=== PATIENT | male | born 1955 | race Asian ===

== ENCOUNTER 2016-12-03 00:09 | Inpatient (IN) | payer MEDICAID ==
[~2016-12-03] VITALS: Ht 177.8 cm; Wt 114.5 kg
[2016-12-03] VITALS (11 sets, daily range): BP systolic 108–142; BP diastolic 56–71; Ht 177.8 cm; Wt 114.5 kg
[~2016-12-03 00:09] MED LIST: GLUCOPHAGE1000 MG PO; LANTUS INSULIN10 ML SC; NAPROSYN500 MG PO; SPIRIVA18 MCG INH; SYNTHROID75 MCG PO; TRIGLIDE160 MG PO; ZANTAC150 MG PO; ZOCOR40 MG PO
[2016-12-03 00:42] LABS: HEMATOCRIT 36.6 % (42.0-54.0); LYMPHOCYTES 59.7 % (15-50); MCH 31.8 pg (26.0-34.0); MCHC 35.5 g/dL (31.0-37.0); MCV 89.5 fL (80.0-100.0); MEAN PLATELET VOLUME 8.2 fL (7.4-10.4); NEUTROPHILS 33.9 % (40-80); RBC 4.09 10x6/uL (4.20-6.10); RDW 12.8 % (11.5-14.5); WBC 7.4 10x3/uL (4.8-10.8)
[2016-12-03 00:44] LABS: PLATELET COUNT 493 10x3/uL (130-400)
[2016-12-03 01:01] LABS: ALBUMIN 3.6 g/dL (3.4-5.0); ALKALINE PHOSPHATASE 46 U/L (46-116); ALT (SGPT) 20 U/L (10-68); AMYLASE - SERUM 36 U/L (25-115); CALC OSMOLALITY 275 mosm/kg (275-300); CALCIUM 9.4 mg/dL (8.5-10.1); CARBON DIOXIDE 23.1 mmol/L (21.0-32.0); CHLORIDE - SERUM 102 mmol/L (98-107); GLUCOSE 160 mg/dL (74-106); LIPASE 375 U/L (73-393); POTASSIUM - SERUM 3.5 mmol/L (3.5-5.1); PROTEIN - SERUM 7.6 g/dL (6.4-8.2); SODIUM 135 mmol/L (136-145); UREA NITROGEN 20 mg/dL (7-18); eGFR NON AFRICAN AMERICAN 81 mL/min (90-120)
[2016-12-03 03:43] LABS: APPEARANCE CLEAR (CLEAR); BILIRUBIN NEGATIVE (NEGATIVE); COLOR YELLOW (YELLOW); GLUCOSE NEGATIVE (NEGATIVE); KETONE NEGATIVE (NEGATIVE); LEUKOCYTE ESTERASE NEGATIVE (NEGATIVE); NITRITE NEGATIVE (NEGATIVE); PROTEIN NEGATIVE (NEGATIVE); SPECIFIC GRAVITY 1.025 (1.005-1.020); UROBILINOGEN NORMAL (NORMAL)
--- NOTE | 2016-12-03 07:30 | NUR ---
RECEIVED PT VIA STRETCHER FROM ED, PT TO ROOM 1223, PT TRANSFERS SELF TO BED WITH NO DIFFICULTY, PT TO BR TO VOID, PT TO BED, ADMITTING ASSESSMENT AND HISTORY STARTED, SEE FLOW SHEET
--- NOTE | 2016-12-03 08:00 | NUR ---
ADMITTING HISTORY AND ASSESSMENT COMPLETED, CONSENTS SIGNED AND WITNESSED
--- NOTE | 2016-12-03 08:10 | NUR ---
PT TO SX VIA BED
--- NOTE | 2016-12-03 09:54 | HP ---
PATIENT: RADHA KEVIN MEDICAL RECORD: [id number] ACCOUNT: [id number] LOCATION:NAVEED [id number] : 57 ADMISSION DATE: 12/03/16 HISTORY AND PHYSICAL EXAMINATION Surgical History and Physical DATE OF ADMISSION: 12/03/2016 SURGEON: Demond Nicholson MD CHIEF COMPLAINT: Abdominal pain. HISTORY OF PRESENT ILLNESS: A 61-year-old male, who developed acute onset of right lower quadrant pain at approximately 8:00 p.m. last night. At the onset of pain, the pain has been constant. It fluctuates in intensity. It has not migrated. He describes it as sharp and stabbing in nature. At home, he had nausea and multiple episodes of vomiting. After several hours of pain and vomiting, he went to the Emergency Room, a CT scan revealed acute appendicitis. PAST MEDICAL HISTORY: COPD, diabetes, obesity. SURGERY: Left foot surgery. MEDICATIONS: Metformin, fenofibrate, ranitidine, simvastatin, Spiriva. ALLERGIES: CODEINE. SOCIAL HISTORY: Negative for alcohol or tobacco use. FAMILY HISTORY: No history of coronary artery disease, positive history of diabetes. PHYSICAL EXAMINATION: VITAL SIGNS: Temperature 97.8, pulse rate 113, respirations 20, blood pressure 130/60, and satting 98% on room air. GENERAL: Well-developed, well-nourished, obese male, in moderate distress. PSYCHIATRIC: Alert and oriented times 3. EYES: Extraocular muscles intact. EAR, NOSE, AND THROAT: Normal dentition. Mucous membranes dry. CARDIOVASCULAR: Normal sinus rhythm. LUNGS: He got decreased breath sounds bilaterally. ABDOMEN: Soft. He has focal tenderness to palpation in the right lower quadrant. He has positive rebound in the right lower quadrant as well as guarding. He has ____ hypoactive bowel sounds. SKIN: Warm and dry with normal turgor. EXTREMITIES: He is neurovascularly intact with mild peripheral edema. NEUROLOGIC: He has a GCS of 15 with no focal deficits. LABORATORY DATA: Reviewed. Hemoglobin 13, hematocrit 36, and platelet count 493. Glucose 160, BUN 20, creatinine 1. White count 7.4, calcium 9.4, potassium 3.5, sodium 135, chloride 102, CO2 of 23, albumin 3.6, bilirubin 0.4, protein 7.6, alkaline phosphatase 46, AST 20, ALT 20, amylase 36, lipase 375. DIAGNOSTIC DATA: CT of the abdomen and pelvis images personally reviewed, the HISTORY AND PHYSICAL [id number] RADHA KEVIN patient with acute appendicitis. Also noted on exam, the patient has significant gallstones ____ gallbladder wall thickening. IMPRESSION: 1. A 61-year-old male with acute appendicitis. 2. Diabetes. 3. Obesity. 4. Hyperlipidemia. PLAN: 1. Admit to med/surg, Dr. Nicholson 2. IV fluid resuscitation. 3. IV narcotics for pain control. 4. IV antiemetics. 5. OR for laparoscopic appendectomy. 6. Risks and benefits of the procedure were discussed with the patient. TRANSINT:[id number] Voice Confirmation ID: [id number] DOCUMENT ID: [id number] DEMOND NICHOLSON MD at 0954 CC: [id number] DICTATION DATE: 12/03/16901 DELIMBER OPERATOR: 12/03/16 0950 ADM IN [id number] [place] [address]
[2016-12-03] MEDS ORDERED: HYDROCODON-ACE1 EAC7 PO (10:00)
--- NOTE | 2016-12-03 10:49 | NUR ---
RECEIVED PT VIA BED FROM RR POST LAP APPENDECTOMY, PT TO ROOM 1223, INITIATED VS, IV IN LEFT WRIST INTACT WITH NO REDNESS OR EDEMA INFUSING NS AT 125 ML/HR, REPORT FROM RR NURSE REGARDING PRESSURE DRESSING PLACED DUE TO SOME BLEEDING TO INC SITE, BUT NO ACTIVE BLEEDING AT THIS TIME, PT DROWSY FROM SEDATION, AROUSES TO SOFT VERBAL STIMULATION, DENIES PAIN AT THIS TIME, 2 ABD LAPS WITH STERI STRIPS CDI WITH NO DRAINAGE NOTED, BED IN LOW POSITION, SIDE RAILS X 2 CALL LIGHT IN REACH
--- NOTE | 2016-12-03 11:18 | NUR ---
PT STILL DROWSY, AROUSES TO SOFT VERBAL STIMULATION, VS CONTINUE, NEW BAG OF NS HUNG VIA PUMP INFUSING AT 125 ML/HR, MEFOXIN HUNG IVPB PER MD ORDERS, SEE EMAR, WILL START PO MEDS WHEN PT IS MORE ALERT
--- NOTE | 2016-12-03 11:45 | NUR ---
PT RESTING WITH EYES CLOSED, RESP QUIET, NO DISTRESS NOTED, LEFT UNDISTRUBED AT THIS TIME
--- NOTE | 2016-12-03 12:20 | NUR ---
PT RESTING WITH EYES CLOSED, AROUSES TO SOFT VERBAL STIMUALTION, VS CONTINUE PT REQUESTED AND SERVED SMALL SIP OF H20, TOLERATED WELL, LR INC SITE WITH PRESSURE DRESSING CDI WITH NO DRAINAGE NOTED, PT DENIES FURTHER NEEDS OR PAIN AT THIS TIME
--- NOTE | 2016-12-03 14:05 | NUR ---
VS CONTINUE, BP NOTED TO BE 108/56, HR 59, PT AROUSES TO SOFT VERBAL STIMULATION, BUT FALLS BACK TO SLEEP
--- NOTE | 2016-12-03 14:08 | NUR ---
PRITESH PRADO, SHOE CEMENTER NOTIFIED TO COME FOR AN EVALUATION ON PT
--- NOTE | 2016-12-03 14:15 | NUR ---
JOHAN RN, DIRECT CARE PROFESSIONAL, REPORT OF PT STILL DROWSY AND VS, JOHAN CALLS ANESTHESIA, REPORTS THAT PT STILL DROWSY, ANESTHESIA REPORTS THAT IT IS STILL NORMAL FOR PT TO BE DROWSY AT THIS TIME, NO ORDERS RECEIVED
--- NOTE | 2016-12-03 14:18 | NUR ---
THIS RN AND JOHANRN, WAFER CUTTER, TO ROOM FOR EVALUATION, PT AROUSES TO SOFT VERBAL STIMULATION, INC SITE STILL CDI WITH NO DRAINAGE NOTED, ABD SOFT, NON DISTENDED, BP 115/67, PT DENIES PAIN, WILL CONTINUE TO MONITOR
--- NOTE | 2016-12-03 15:30 | NUR ---
PT RESTING WITH EYES CLOSED, AROUSES TO SOFT VERBAL STIMUALTION, LAST SET OF POST OP VS OBTAINED, PT REPORTS NOT NEEDING TO VOID AT THIS TIME, INFORMED PT THAT HE WILL HAVE TO GET UP WITHIN THE NEXT HOUR TO VOID, PT VERBALIZES UNDERSTANDING, DENIES NEEDS OR PAIN AT THIS TIME, SCD'S CONTINUE ON AND WORKING PROPERLY
--- NOTE | 2016-12-03 16:08 | NUR ---
PT RESTING WITH EYES CLOSED, AROUSES TO SOFT VERBAL STIMULATION, MEFOXIN HUNG IVPB AND ADM TORADOL IM PER MD ORDERS, SEE EMAR, PT TOLERATED TORADOL, PT UP TO BR, GAIT SLIGHTLY UNSTEADY, PT UNABLE TO VOID AT THIS TIME, STATES "I HAVEN'T DRANK ANYTHING", PT BACK TO BED, PT INST TO DRINK PLENTY OF FLUIDS AT THIS TIME, PT INFORMED THAT IF HE WAS NOT ABLE TO VOID, I WOULD HAVE TO DO AN IN AND OUT CATH, PT STATES "NO, I DON'T WANT THAT, I WILL REFUSE IT", PT REQUESTED SNACK, SERVED FRESH H20 AND VANILLA PUDDING, SCD'S RECONNECTED AND WORKING PROPERLY, PT INST ON AND DEMONSTRATED INCENTIVE SPIROMETER, LOWER LEFT INC WITH PRESSURE DRESSING CDI WITH NO DRAINAGE NOTED, PT DENIES FURTHER NEEDS
--- NOTE | 2016-12-03 16:50 | NUR ---
PT UP TO BR WITH ASSISTANCE, GAIT SLIGHTLY UNDSTEADY, PT VOIDED 200 MLS BY SELF WITH NO DIFFICULTY, PT BACK TO BED, SCD'S RECONNECTED AND WORKING PROPERLY, PT INQUIRES ABOUT DINNER, INFORMED HIM THAT DINNER USUALLY COMES AROUND 5/5:30, PT VERBALIZES UNDERSTANDING, DENIES FURTHER NEEDS AT THIS TIME
--- NOTE | 2016-12-03 17:18 | NUR ---
DINNER SERVED TO PT, PT REQUESTS TO SIT IN CHAIR TO EAT DINNER, PT UP TO CHAIR WITH ASSISTANCE, GAIT A LITTLE MORE STEADY AT THIS TIME, DINNER TRAY IN FRONT OF PT, REQUESTED AND SERVED FRESH H20, PT DENIES FURTHER NEEDS, PT INST NOT TO GET BACK INTO BED WITHOUT CALLING ME, PT VERBALIZES UNDERSTANDING, CALL LIGHT IN REACH
--- NOTE | 2016-12-03 18:00 | NUR ---
PT FINISHED DINNER, ATE 95% OF DINNER, PT BACK TO BED, SCD'S RECONNECTED AND WORKING PROPERLY, PT DENIES NEED FOR PAIN MED, DENIES FURTHER NEEDS
--- NOTE | 2016-12-03 19:00 | NUR ---
SHIFT REPORT TO TRINA HERNANDEZ RN
--- NOTE | 2016-12-03 19:43 | NUR ---
PT RECEIVED LYING IN BED RESTING QUIETLY AT THIS TIME WITH EYES CLOSED WITH SPOUSE AT BEDSIDE. AROUSED EASILY. VSS. IV NOTED TO LEFT WRIST INFUSING NS @ 125 CC/HR. PATENT. DRESSING CDI. HEART RRR. LUNG SOUNDS CLEAR BILATERALLY. BOWEL SOUNDS ACTIVE X4 QUADRENTS. 2 LAP INCISIONS NOTED TO ABDOMEN WITH STERI STRIPS CDI. NO REDNESS, SWELLING, OR PURULENT DRAINAGE NOTED. PRESSURE DRESSING NOTED TO LLQ OF ABDOMEN. CDI. NO DRAINAGE NOTED. ABDOMEN SOFT NON-DISTENDED WITH SLIGHT TENDERNESS. PT RATES PAIN 0/10 AT THIS TIME. SCDS NOTED TO BLE AT THIS TIME. PEDAL PULSES EQUAL BILATERALLY. PT DENIES NEEDS AT THIS TIME. BED IN LOWEST. PHONE AND CALL LIGHT IN REACH. SRX2.
--- NOTE | 2016-12-03 20:14 | NUR ---
PT UP TO USE RESTROOM AT THIS TIME. GAIT STEADY AT THIS TIME. DENIES FURTHER NEEDS. PT VOIDED APPROX 600 CC AT THIS TIME. PT BACK TO BED. BED LOW. PHONE AND CALL LIGHT IN REACH. SRX2.
--- NOTE | 2016-12-03 21:54 | NUR ---
PM MEDS GIVEN AT THIS TIME. PT REQUESTS COLA AND PUDDING AT THIS TIME. PT DENIES OTHER NEEDS. BED LOW. PHONE AND CALL LIGHT IN REACH. SRX2.
--- NOTE | 2016-12-03 22:20 | NUR ---
PT RESTING QUIETLY AT THIS TIME WITH EYES CLOSED. RESPIRATIONS EVEN, NON-LABORED. NO ACUTE DISTRESS NOTED AT THIS TIME. BED LOW. PHONE AND CALL LIGHT IN REACH. SRX2.
--- NOTE | 2016-12-03 23:27 | OP ---
PATIENT NAME: RADHA KEVIN MEDICAL RECORD: [id number] :57 LOCATION:NAVEED D.1223 ADMISSION DATE:12/03/16 SURGEON: DEMOND NICHOLSON MD DATE OF OPERATION: 12/03/2016 SURGEON: Demond Nicholson MD PREOPERATIVE DIAGNOSIS: Acute appendicitis. POSTOPERATIVE DIAGNOSIS: Acute appendicitis. PROCEDURE PERFORMED: Laparoscopic appendectomy. ANESTHESIA: General. COMPLICATIONS: None. SPECIMENS: Appendix. Case was clean contaminated. ESTIMATED BLOOD LOSS: 40 cc. OPERATIVE COURSE: After consent was obtained, the patient was taken to the operating room and placed in the supine position on the operating table. Next, general anesthesia was given via endotracheal intubation after a timeout was performed that confirmed the correct patient and procedure. The abdomen was prepped and draped in typical sterile fashion. Local anesthetic was injected just above the umbilicus. A stab incision was made with 11-blade scalpel. Using a 5-mm bladeless optical trocar, the abdomen was entered under direct laparoscopic vision. Adequate pneumoperitoneum was achieved. The patient was placed into Trendelenburg position. At that time, 2 additional trocars were placed, a 5-mm trocar in the suprapubic position and a 12-mm trocar in the left lower quadrant. The distal and terminal ileum were swept towards the left upper quadrant. The appendix was in a retrocecal position. The cecum was mobilized off the sidewall by taking the white line of Toldt. Once the cecum has been mobilized medially, the appendix was grasped and retracted. A mesenteric window was created at the base of the appendix using the [place] Dissector. Next, the appendix was transected using a 60-mm linear cutting stapler with a blue load. The mesoappendix was taken with a two firing of the white load stapler. The appendix was placed in the EndoCatch bag and removed through the 12-mm trocar and sent for permanent pathology. The operative field was copiously irrigated and suctioned. Careful attention was paid to hemostasis was obtained with electrocautery. Both staple lines were inspected. There was no evidence of bowel injury. No evidence of bleeding. The remaining portion of the abdomen was irrigated and suctioned. The remaining portion of the abdominal cavity was inspected. No evidence of bowel injury. No evidence of bleeding. At this time, the 12-mm trocar was removed, site was closed with an 0 Vicryl suture and a Juaquin-Jonathan suture passer under direct laparoscopic vision. At this time, the abdomen was desufflated. All remaining instruments were removed. The abdomen was desufflated. The remaining trocars were removed. Skin was closed with 4-0 Monocryl, Mastisol and Steri-Strips. At the end of the case, all needle and instrument counts were correct. No complications occurred. The patient was extubated and transferred to the PACU in stable condition. OPERATIVE REPORT [id number] RADHA KEVIN TRANSINT:[id number] Voice Confirmation ID: [id number] DOCUMENT ID: [id number] DEMOND NICHOLSON MD at 2327 CC: [id number] DICTATION DATE: 12/03/16 0953 WORK TICKET DISTRIBUTOR: 12/03/16 1220 ADM IN [place] [id number] [place] [id number]
[2016-12-04 00:14] VITALS: BP 140/68
--- NOTE | 2016-12-04 00:14 | NUR ---
NOTIFIED SUMMER, BREAST SURGEON BEFORE ADMINISTERING HYDROCODONE DUE TO PT ALLERGY TO CODEINE. SUMMER STATES IT IS OKAY TO GIVE. ADMINISTERED NORCO PO PER ORDERS AT THIS TIME FOR PAIN PT RATES 03/29. PT VOIDED APPROX 350 CC AT THIS TIME WELL. PT DENIES OTHER NEEDS. BED LOW. PHONE AND CALL LIGHT IN REACH. SRX2.
[2016-12-04 03:52] VITALS: BP 130/61
--- NOTE | 2016-12-04 03:52 | NUR ---
PT RESTING QUIETLY IN BED AT THIS TIME WITH EYES CLOSED. AROUSED EASILY. VSS. WEIGHT TAKEN AT THIS TIME. PT UP TO USE RESTROOM. DENIES NEEDS. BED LOW. PHONE AND CALL LIGHT IN REACH. SRX2.
--- NOTE | 2016-12-04 05:47 | NUR ---
PT RESTING QUIETLY AT THIS TIME WITH EYES CLOSED. AROUSED EASILY. ADMINISTERED SYNTHROID PO PER ORDERS AT THIS TIME. PT DENIES NEEDS AT THIS TIME. BED LOW. PHONE AND CALL LIGHT IN REACH. SRX2.
--- NOTE | 2016-12-04 07:45 | NUR ---
PATEINT IS AWAKE AND ALERT, UP TO THE RESTROOM WITH ASSISTANCE GETTING OOB. HE DENIES NEEDS AT THIS TIME.
--- NOTE | 2016-12-04 08:13 | NUR ---
PASHA SITTING UP EATING HIS BREAKFAST. HE DENIES NEEDS. HE EXPECTS TO GO HOME TODAY.
[2016-12-04 08:30] VITALS: BP 122/67
--- NOTE | 2016-12-04 11:15 | NUR ---
DISCUSSED DISCHARGE PLANS WITH THE PATIENT. REVIEWED F/U APPT, MEDICATIONS TO BE TAKEN, S/S OF INFECTION, INCISION CARE AND ACTIVITY LIMITATIONS. PRESCRIPTION FOR NORCO 5MG GIVEN.
--- NOTE | 2016-12-04 11:42 | NUR ---
JOBY'S HERE WITHHIS CLOTHES.
--- NOTE | 2016-12-04 12:24 | NUR ---
PATIENT OFF THE UNIT IN A WHEELCHAIR, ACCOMPANIED BY A VOLUNTEER. WAITING IN CAR.
== END 2016-12-04 12:25 | disposition home or self-care (01) | DRG 343 ==
LOC: D.ER 00:09 → D.WS 05:49
PROVIDERS: Emergency Medicine; ADMIT Surgery
PROC: 0DTJ4ZZ Resection of Appendix, Percutaneous Endoscopic Approach (ICD-10-PCS; principal; 2016-12-03 08:00)
DX: K35.80 Unspecified acute appendicitis (principal); J44.9 Chronic obstructive pulmonary disease, unspecified; E11.9 Type 2 diabetes mellitus without complications; Z79.84 Long term (current) use of oral hypoglycemic drugs; E66.9 Obesity, unspecified; K80.80 Other cholelithiasis without obstruction; Z68.36 Body mass index [BMI] 36.0-36.9, adult

== ENCOUNTER 2018-11-29 11:29 | Emergency (ER) | payer MEDICAID ==
[~2018-11-29] VITALS: Ht 177.8 cm; Wt 106.4 kg
[~2018-11-29 11:29] MED LIST changes: +HYDROCODON-ACE1 EAC7 PO
[2018-11-29 11:34] VITALS: Ht 177.8 cm; Wt 106.4 kg
[2018-11-29 11:58] LABS: BASOPHILS 0.3 % (0-2); EOSINOPHILS 1.1 % (0-7); HEMOGLOBIN 15.7 g/dL (13.5-17.5); IMMATURE GRANULOCYTES 0.3 % (0-5); LYMPHOCYTES 27.8 % (15-50); MCH 31.4 pg (26.0-34.0); MCHC 35.7 g/dL (31.0-37.0); MEAN PLATELET VOLUME 9.8 fL (7.4-10.4); MONOCYTES 7.3 % (2-11); NEUTROPHILS 63.2 % (40-80); RDW 14.6 % (11.5-14.5); WBC 6.3 10x3/uL (4.8-10.8)
[2018-11-29 11:59] LABS: PLATELET COUNT 313 10x3/uL (130-400)
[2018-11-29 12:56] LABS: ALBUMIN 3.7 g/dL (3.4-5.0); ANION GAP 15.3 mmol/L (8-16); BILIRUBIN - TOTAL 0.43 mg/dL (0.2-1.3); CREATININE - SERUM 1.4 mg/dL (0.6-1.3); POTASSIUM - SERUM 3.3 mmol/L (3.5-5.1); PROTEIN - SERUM 8.1 g/dL (6.4-8.2)
[2018-11-29 13:04] LABS: THYROID STIMULATING HORMONE 0.04 uIU/mL (0.36-3.74)
[2018-11-29 13:28] LABS: APPEARANCE HAZY (CLEAR); BACTERIA MANY /hpf (NONE SEEN); BILIRUBIN NEGATIVE (NEGATIVE); COLOR DK YELLOW (YELLOW); EPITHELIAL CELLS 0-5 /hpf (0-5); GLUCOSE NEGATIVE (NEGATIVE); KETONE NEGATIVE (NEGATIVE); MUCUS <1+ /lpf (NONE SEEN); NITRITE POSITIVE (NEGATIVE); PROTEIN TRACE mg/dL (NEGATIVE); RED CELLS - URINE 0-5 /hpf (0-5); SPECIFIC GRAVITY 1.025 (1.005-1.020); UROBILINOGEN NORMAL (NORMAL); WHITE CELLS - URINE 0-5 /hpf (0-5)
[2018-11-29] MEDS ORDERED: IMODIUM2 MG PO (14:10)
[2018-11-29] MEDS ORDERED: ZOFRAN ODT4 MG/UDTAB PO (14:10)
[2018-11-29 15:40] VITALS: BP 120/53
== END 2018-11-29 15:40 | disposition home or self-care (01) ==
LOC: D.ER 11:29
PROVIDERS: Emergency Medicine
DX: A08.4 Viral intestinal infection, unspecified (principal); I12.9 Hypertensive chronic kidney disease with stage 1 through stage 4 chronic kidney disease, or unspecified chronic kidney disease; N18.9 Chronic kidney disease, unspecified; E86.0 Dehydration; E11.9 Type 2 diabetes mellitus without complications

== ENCOUNTER 2019-02-14 12:41 | Outpatient (CLI) | payer MEDICAID ==
[~2019-02-14] VITALS: Ht 177.8 cm; Wt 100.0 kg
--- NOTE | ~2019-02-14 | HEMODYNAMI ---
PATIENT:RADHA KEVIN MEDICAL RECORD: [id number] : 57 LOCATION:[facility] ADMISSION DATE: 02/14/19 Generatedon:02/14/201914:52 Patient name: RADHA KEVIN Patient #: [id number] SSN: : 1955 Date of study: 02/14/2019 Page: Of Hemodynamic Procedure Report Patient Data Patient Demographics Procedure consent was obtained First Name: RADHA Gender: Male Last Name: HERBERTH : 1955 Patient #: [id number] Age: 64 year(s) Race: Additional ID: [id number] Contact details Address: [place] [address] State: [place] City: [place] Zip code: [address] Past Medical History Allergies Allergen Reaction Date Comments Reported Codeine 02/14/2019 Admission Admission Data Admission Date: 02/14/2019 Admission Time: 12:41 Admit Source: Emergency department Lab Results Lab Result Date: 02/14/2019 Lab Result Time: 0:00 Biochemistry Name Units Result Min Max BUN mg/dl 17 --(---*)-- 7 18 Creatinine mg/dl 1.1 --(--*-)-- 0.6 1.3 CBC Name Units Result Min Max Hemoglobin g/dl 12.7 -*(----)-- 13.5 17.5 Procedure Procedure Types Cath Procedure Diagnostic Procedure LHC LHC w/Coronaries FFR/IVUS FFR Initial Procedure Description Procedure Date Procedure Date: 02/14/2019 Procedure Start Time: 14:34 Procedure End Time: 14:49 Procedure Staff Name Function Raheel Adams MD Performing Physician Gordon Mendosa RT Monitor Yodit Nair RN Nurse Kallie Harris RT Scrub Romeo Proctor RN Showroom Sales Assistant Procedure Data Cath Procedure Fluoroscopy Diagnostic fluoroscopy Total fluoroscopy Time: 6.4 time: 6.4 min min Diagnostic fluoroscopy Total fluoroscopy dose: dose: 1278 mGy 1278 mGy Contrast Material Contrast Material Type Amount (ml) Isovue 300 90 Entry Location Entry Primary Successful Side Size Upsize Upsize Entry Closure Succes sful Closure Location (Fr) 1 (Fr) 2 (Fr) Remarks Device Remarks Femoral Right 5 Fr 6 Fr Exoseal artery Short Diagnostic catheters Device Type Used For End Catheter Placement MULTIPACK Pigtail 5 Fr LV Angiography catheter MULTIPACK JL 4.0 5Fr Left Coronary catheter Angiography MULTIPACK 3DRC 5Fr Right Coronary catheter Angiography Procedure Complications No complications Procedure Medications Medication Administration Route Dosage 0.9% NaCl I.V. 100 ml/hr Oxygen etCO2 Nasal cannula 2 l/min Lidocaine 2% added to field 20 Heparin Flush Bag added to field 2 bags (1000units/500ml NS) Versed I.V. 2 mg Fentanyl I.V. 50 mcg Hemodynamics Rest HGB: 12.7 (g/dl) Heart Rate: 64 (bpm) Snapshots Pre Cath Intra NCS Post Cath Vital Signs Time Heart Resp SPO2 etCO2 NIBP (mmHg) Rhythm Pain Sedation Rate (ipm) (%) (mmHg) Status Level (bpm) 14:18:12 63 14 100 25 155/79(120) NSR 0 (11) 10(A) , No pain 14:22:40 60 15 99 12 152/76(118) NSR 0 (11) 10(A) , No pain 14:26:58 59 13 98 29.3 125/69(100) NSR 0 (11) 10(A) , No pain 14:31:16 62 12 99 35.3 128/67(97) NSR 0 (11) 10(A) , No pain 14:35:40 60 11 99 36.8 133/67(100) NSR 0 (11) 9(A) , No pain 14:40:04 62 17 100 35.3 129/68(110) NSR 0 (11) 9(A) , No pain 14:44:27 63 14 100 35.3 128/65(100) NSR 0 (11) 10(A) , No pain 14:48:51 61 22 100 31.5 127/65(105) NSR 0 (11) 10(A) , No pain Medications Time Medication Route Dose Verified Delivered Reason Notes Eff ectiveness by by 14:25:16 0.9% NaCl I.V. 100 Raheel Monsivais used for ml/hr Angie Nair journalists and other writers 14:25:27 Oxygen etCO2 2 Raheel Yodit used for Nasal l/min Angie Nair procedure cannula RN 14:25:34 Lidocaine 2% added 20ml Raheel Raheel for local to vial Angie Adams MD anesthetic field 14:25:38 Heparin Flush added 2 Raheel Raheel used for Bag to bags Angie Adams MD procedure (1000units/500ml field NS) 14:31:04 Versed I.V. 2 mg Raheel Yodit for Angie Nair sedation RN 14:31:14 Fentanyl I.V. 50 Raheel Yodit for mcg Angie Nair sedation visual basic programmer Log Time Note 14:07:17 Admit Source: Emergency department 14:08:02 Diagnostic Cath status Emergency 14:08:07 Romeo Proctor RN sent for patient. Start room use. 14:08:08 Time tracking: Regular hours (M-F 7:00 - 5:00) 14:08:13 Plan of Care:Hemodynamics will remain stable., Cardiac rhythm will remain stable., Comfort level will be maintained., Respiratory function will remain adequate., Patient/ family verbilizes understanding of procedure., Procedure tolerated without complication., Recovers from procedure without complications.. 14:12:03 Lab Result : Creatinine 1.1 mg/dl 14:12:03 Lab Result : BUN 17 mg/dl 14:12:03 Lab Result : Hemoglobin 12.7 g/dl 14:12:07 Lab results completed and on chart. 14:16:50 Vital chart was started 14:17:39 Patient received from ED to CCL 1 Alert and oriented. Tansferred to table in Supine position. 14:17:40 Warm blankets applied, and darrius hugger turned on for patient comfort. 14:17:40 Correct patient and procedure confirmed by team. 14:17:41 ECG and BP/O2 sat monitors applied to patient. 14:17:42 Signed procedure consent form obtained from patient. 14:17:43 Baseline sample Acquired. 14:17:48 Rhythm: sinus rhythm 14:17:50 Full Disclosure recording started 14:17:54 H&P Date Dictated: 02/14/2019 Within 30 days and on chart.. 14:17:55 Pre-procedure instructions explained to patient. 14:17:56 Pre-op teaching completed and patient verbalized understanding. 14:18:00 Family unavailable. 14:18:03 Patient NPO since Breakfast. 14:18:24 Patient allergic to Codeine 14:19:06 Is the patient allergic to Iodine/contrast media? No. 14:19:13 Is patient on blood thinner?Yes 14:19:16 ACC The patient was administered the following blood thiners within the last 24 hours: ACCPlavix 14:19:22 Patient diabetic? Yes. 14:19:24 If diabetic: On Metformin? Yes 14:19:27 If on Metformin: Last Dose? 02/12/2019 14:19:29 ----Pre-sedation anethsthesia assessment.---- 14:19:31 Previous problem with sedation/anesthesia? No ? 14:19:33 Snore? No 14:19:34 Sleep apnea? No 14:19:36 Deviated septum? No 14:19:37 Opens mouth fully? Yes 14:19:38 Sticks out tongue? Yes 14:19:42 Airway obstruction? Yes COPD 14:19:47 Dentures? No ? 14:21:06 Pre procedure: right dorsailis pedis pulse 2+ Normal; easily identifiable; not easily obliterated 14:21:15 Patient pain scale 6/10 CHEST PAIN. 14:21:23 IV patent on arrival in right wrist with 0.9% NaCl at [facility]. 14:21:28 Right groin area was prepped with chlora-prep and draped in sterile fashion 14:21:29 Alarms reviewed by R. N. 14:21:29 Sharps counted by scrub and verified by R.N. 14:21:31 Physician paged 14:25:16 0.9% NaCl 100 ml/hr I.V. was administered by Yodit Nair RN; used for procedure; 14:25:27 Oxygen 2 l/min etCO2 Nasal cannula was administered by Yodit Nair RN; used for procedure; 14::34 Lidocaine 2% 20ml vial added to field was administered by Raheel Adams MD; for local anesthetic; 14:25:38 Heparin Flush Bag (1000units/500ml NS) 2 bags added to field was administered by Raheel Adams MD; used for procedure; 14:30:36 Physician arrived 14:30:37 --------ALL STOP TIME OUT------ 14:30:37 Final Timeout: patient, procedure, and site verified with staff and physician. All members of the team are in agreement. 14:30:39 Right groin site verified by team. 14:30:45 Maximum allowable Isovue 300 dose 300ml. Physician notified. (300ml for normal creatinines. For patients with creatinine of 1.7 or higher multiply weight(kg) x 5 divided by creatinine.) 14:30:49 Fire Safety Assessment: A--An alcohol-based skin anteseptic being used preoperatively., C--Open oxygen or nitrous oxide is being used., D--An ESU, laser, or fiber-optic light is being used. 14:30:53 Physical assessment completed. ASA score P 2 - A patient with mild systemic disease as per Raheel Adams MD. 14:30:57 Sedation plan: IV Moderate Sedation Medication:Versed, Fentanyl 14:31:04 Versed 2 mg I.V. was administered by Yodit Nair RN; for sedation; 14:31:14 Fentanyl 50 mcg I.V. was administered by Yodit Nair RN; for sedation; 14:31:20 Zero performed for pressure channel P1 14:31:24 Use device set Femoral Dx 14:31:25 ACIST Syringe (77337) opened to sterile field. 14:31:26 Bag Decanter (2002S) opened to sterile field. 14:31:26 Medline Cath Pack ([id number]) opened to sterile field. 14:31:28 ACIST Hand Control (99800) opened to sterile field. 14:31:28 ACIST Manifold (47115) opened to sterile field. 14:31:28 DIAGNOSTIC Multipack 5Fr catheter set (JQ6039) opened to sterile field. 14:31:29 Tegaderm 4 x 4 (1626W) opened to sterile field. 14:31:31 SHEATH 5FR [place] (LFK557) opened to sterile field. 14:31:32 EMERALD Guide Wire (827-191) opened to sterile field. 14:34:14 Procedure started. 14:34:27 Local anesthetic to right femoral artery with Lidocaine 2% by Raheel Adams MD.INITIAL ACCESS ONLY 14:34:39 A 5 Fr sheath was inserted into the Right Femoral artery 14:35:25 Zero performed for pressure channel P1 14:35:29 Zero performed for pressure channel P1 14:35:31 Zero performed for pressure channel P1 14:35:47 A MULTIPACK Pigtail 5 Fr catheter was advanced over the wire and used for LV Angiography. 14:36:23 LV angiography performed. 14:36:31 LV gram done using LAWRENCE 14:36:59 EF : 50 % 14:37:01 Catheter removed. 14:37:07 A MULTIPACK JL 4.0 5Fr catheter was advanced over the wire and used for Left Coronary Angiography. 14:39:30 LCA angiography performed. 14:39:31 Catheter removed. 14:39:37 A MULTIPACK 3DRC 5Fr catheter was advanced over the wire and used for Right Coronary Angiography. 14:39:41 RCA angiography performed. 14:39:42 Catheter removed. 14:41:10 [place] Verrata Plus pressure wire (69673O) opened to sterile field. 14:41:11 SHEATH 6FR [place] (QSZ464) opened to sterile field. 14:41:12 INFLATOR Merit BasixCompak (FW4919) opened to sterile field. 14:41:12 GUIDE 6FR XBLAD 3.5 catheter ([id number]) opened to sterile field. 14:41:22 Sheath upsized to a 6 Fr Short. 14:41:30 6 Fr XBLAD 3.5 guide catheter was inserted over the wire 14:41:34 IFR wire advanced. 14:41:44 FFR/IFR wire advanced. 14:41:46 Wire advanced across lesion. 14:46:14 mLAD lesion measured at 0.93 with IFR 14:46:25 Wire removed. 14:46:29 Guide catheter removed. 14:46:37 EXOSEAL 5Fr (EX500) opened to sterile field. 14:46:50 Sheath removed intact; hemostasis achieved with Exoseal to the Right Femoral artery. 14:46:52 Procedure ended.(Physican Out) 14:47:07 Fluoroscopy time 06.40 minutes. 14:47:13 Fluoroscopy dose: 1278 mGy 14:47:13 Flurop Dose total: 1278 14:47:17 Contrast amount:Isovue 300 90ml. 14:47:19 Sharps counted by scrub and verified by R.N. 14:47:19 Insertion/operative site no bleeding no hematoma. 14:47:28 Post-op/insertion site Right Femoral artery dressed using a 4 x 4 and Tegaderm. 14:47:32 Post right femoral artery:stable 14:47:33 Post Procedure Pulses reassessed and unchanged 14:47:36 Post procedure: right dorsailis pedis pulse 2+ Normal; easily identifiable; not easily obliterated. 14:47:52 Post procedure rhythm: unchanged. 14:47:56 Post procedure instruction explained to patient.Patient verbalizes understanding. 14:48:04 Procedure and supply charges have been captured, reviewed, submitted and are correct. 14:48:52 Procedure type changed to Cath procedure, Diagnostic procedure, LHC, LHC w/Coronaries, FFR/IVUS, FFR Initial 14:49:05 Procedure Complication : No complications 14:49:07 Vital chart was stopped 14:49:10 See physician's report for complete and final results. 14:49:23 Report given to Pre/Post Procedure Room. 14:49:26 Patient transfered to Pre/Post Procedure Room with Stretcher. 14:49:28 Procedure ended. 14:49:28 Full Disclosure recording stopped 14:49:31 End room use (Document Last) Device Usage Item Name Manufacture Quantity Catalog Hospital Part Current Minima l Lot# / Number Charge Number Stock Stock Serial# Code ACIST Acist 1 65106 004743 947430 406352 20 Syringe Medical (54216) Systems Inc Bag Microtek 1 2001S 100580 52964 120633 5 Decanter Medical Inc. () Medline Medline 1 [id number] 265192 46842 225210 5 Cath Pack ([id number]) ACIST Hand Acist 1 82710 817250 880283 284213 5 Control Medical (54828) Systems Inc ACIST Acist 1 65874 407045 804030 757354 5 Manifold Medical (38063) Systems Inc DIAGNOSTIC Cardinal 1 LZ0146 687222 29242 244475 30 MultipSlidePay 5Fr catheter set (PC0534) Tegaderm 4 3M 1 1626W 175552 637245 393038 5 x 4 (1626W) SHEATH 5FR Terumo 1 GUR405 408534 230694 890003 5 [place] (SCI670) EMERALD Cardinal 1 502-455 452677 792070 396095 5 Guide Wire Turbo-Trac [place] (502-455) MULTIPACK Cardinal 1 357424 5 Pigtail 5 Health Fr catheter MULTIPACK Cardinal 1 583228 5 JL 4.0 5Fr Health catheter MULTIPACK Cardinal 1 608219 5 3DRC 5Fr Health catheter [place] 1 [id number] 726528 156258404 907164 5 Verrata Plus pressure wire (16711Z) SHEATH 6FR Terumo 1 OIN925 037016 064552 024217 40 [place] (VVG833) INFLATOR Merit 1 IH0681 238125 086539 616948 15 [facility] Medical BasixCompak (JU9988) GUIDE 6FR Cardinal 1 [id number] 859644 553439 572872 10 XBLAD 3.5 Health catheter (45695629) EXOSEAL 5Fr Cardinal 1 EX500 950084 225765 751885 10 (EX500) Health Signature Audit [place] Stage Time Signature Unsigned Intra-Procedure 02/14/2019 Gordon COY(Debra) 2:52:22 PM Signatures Monitor : Gordon Mendosa RT Signature : Date : Time : [place] [id number] [place] [id number]
[~2019-02-14 12:41] MED LIST changes: +IMODIUM2 MG PO; +ZOFRAN ODT4 MG/UDTAB PO
[2019-02-14 12:48] VITALS: Ht 177.8 cm; Wt 100.0 kg
[2019-02-14 13:22] LABS: HEMATOCRIT 35.3 % (42.0-54.0); HEMOGLOBIN 12.7 g/dL (13.5-17.5); MCV 91.7 fL (80.0-100.0); MEAN PLATELET VOLUME 9.1 fL (7.4-10.4); PLATELET COUNT 290 10x3/uL (130-400); RBC 3.85 10x6/uL (4.20-6.10); RDW 13.3 % (11.5-14.5); WBC 5.2 10x3/uL (4.8-10.8)
[2019-02-14 13:35] LABS: ALBUMIN 3.8 g/dL (3.4-5.0); ALKALINE PHOSPHATASE 40 U/L (46-116); ALT (SGPT) 18 U/L (10-68); BILIRUBIN - TOTAL 0.46 mg/dL (0.2-1.3); CALC OSMOLALITY 286 mosm/kg (275-300); CALCIUM 8.8 mg/dL (8.5-10.1); CARBON DIOXIDE 24.8 mmol/L (21.0-32.0); CHLORIDE - SERUM 106 mmol/L (98-107); CREATININE - SERUM 1.1 mg/dL (0.6-1.3); GLUCOSE 133 mg/dL (74-106); POTASSIUM - SERUM 3.3 mmol/L (3.5-5.1); PROTEIN - SERUM 7.3 g/dL (6.4-8.2); SODIUM 142 mmol/L (136-145); UREA NITROGEN 17 mg/dL (7-18); eGFR NON AFRICAN AMERICAN 72 mL/min (90-120)
[2019-02-14 13:46] LABS: CKMB 0.6 U/L (0.0-3.6); CREATINE KINASE 105 UL (21-232); MAGNESIUM - SERUM 1.7 mg/dL (1.8-2.4); TROPONIN-I 0.029 ng/mL (0.000-0.060)
[2019-02-14 14:04] LABS: EOSINOPHILS 5 % (0-7); LYMPHOCYTES 53 % (15-50); MONOCYTES 7 % (2-11); NEUTROPHILS 34 % (40-80); PLATELET ESTIMATE NORMAL
[2019-02-14 14:06] LABS: APTT 37.1 SECONDS (22.8-39.4); INR 1.15 (0.85-1.17); PROTIME 14.2 SECONDS (11.6-15.0)
[2019-02-14 14:11] VITALS: BP 130/47
--- NOTE | 2019-02-14 14:48 | HP ---
PATIENT: RADHA KEVIN MEDICAL RECORD: [id number] ACCOUNT: [id number] LOCATION:JANEL : 57 ADMISSION DATE: 02/14/19 PCP: FAM SINGH MD HISTORY AND PHYSICAL EXAMINATION ADMITTING DIAGNOSES: 1. Unstable angina. 2. Abnormal ECG. 3. Diabetes. 4. Shortness of breath, dyspnea on exertion. 5. Nausea, vomiting. HISTORY OF PRESENT ILLNESS: Mr. Kevin has not had a previous cardiac history. He had severe onset of chest pressure today, is associated with diaphoresis, shortness of breath, nausea, vomiting. He presents to the Emergency Room. He was still having chest discomfort when he presented to the Emergency Room, it abated. His initial EKG was with a right bundle branch block, T-wave inversion in V1, 2 and 3. He had recurrence of his pain, which he is still having now in an escalating fashion and his EKG now has T-wave inversions all the way through V5. His discomfort is a pretty classic anginal discomfort with a pressure in the anterior chest, radiating now to the back and radiating to his left arm. Once again, he is sweating and becoming diaphoretic. His systolic blood pressure is in the 90s, heart rate is in the 50s, hence there is little room for medical management at this time. PHYSICAL EXAMINATION: GENERAL APPEARANCE: Well-nourished, well-developed, appears stated age. Level of distress, comfortable. PSYCHIATRIC: Mental status, alert, normal affect. Orientation, oriented to time, place and person. EYES: Lids and conjunctiva, noninjected. No discharge, no pallor. ENT: Lips, teeth, gums, normal dentition. Oropharynx, no cyanosis, no pallor. NECK: Carotid arteries, bilateral normal upstroke, no bruits, no thrills. JUGULAR VEINS: No jugular venous pressure or distention. CERVICAL LYMPH NODES: Nontender, nonenlarged. THYROID: Not enlarged. Nontender. No nodules. LUNGS: Respiratory effort, unlabored. CHEST: Normal curvature. No thoracic deformity. No chest wall tenderness. Percussion, resonant. Auscultation, clear. No wheezes, no rales, no rhonchi. CARDIOVASCULAR: Precordial exam, nondisplaced. No heaves or pericardial thrills. Rate and rhythm, regular. Heart sounds, normal S1, normal S2. No S3, no gallop, no rub. Systolic murmur, not heard. Diastolic murmur, not heard. EXTREMITIES: No cyanosis, no edema. Peripheral pulses, full and equal in all extremities, except as noted. No bruits appreciated. ABDOMEN: Soft, nondistended. Normal aorta. No bruit. Nontender. No masses. Liver, nontender, no hepatomegaly. Spleen, nontender, no splenomegaly. MUSCULOSKELETAL: No joint tenderness. No joint swelling. No erythema. NEUROLOGICAL: Normal gait, normal strength, normal tone. SKIN: Warm and dry. OVERALL IMPRESSION: Chest pain compatible with unstable angina, EKG changes with the chest pain and a diabetic associated with hypotension, most likely he does have hemodynamically significant coronary artery disease. We will load with aspirin, Plavix, proceed with coronary angiography. HISTORY AND PHYSICAL [id number] RADHA KEVIN TRANSINT:[id number] Voice Confirmation ID: [id number] DOCUMENT ID: [id number] SIMON RAMOS MD at 1448 CC: [id number] DICTATION DATE: 02/14/19 1326 RN FLOAT: 02/14/19 1337 [facility] [address] [place] [id number]
--- NOTE | 2019-02-14 15:22 | NUR ---
PT SLEEPING, RESP WTIH EASE ON O2 AT 2LPM VIA NC. VSS. DRESSING CDI TO RIGHT GROIN, PEDAL PULSES PALPABLE. DR RAMOS HAS ROUNDED ON PT AND SPOKEN WITH FAMILY. HE INSTRUCTED THEM TO FOLLOW UP WITH GENERAL SERVICE TECHNICIAN AND NO CARDIAC FOLLOW UP NEEDED AT THIS TIME. PT'S HOB IS FLAT, CALL LIGHT IN REACH. FAMILY AT BEDSIDE.
--- NOTE | 2019-02-14 15:43 | NUR ---
HOB FLAT, DRESSING CDI TO RIGHT GROIN, AREA IS SOFT AND NONTENDER, PEDAL PULSES PALPABLE. VSS, RESP WITH EASE ON O2 AT 2LPM VIA NC.
--- NOTE | 2019-02-14 16:05 | NUR ---
DRESSING CDI TO RIGHT GROIN, PEDAL PULSES PALPABLE. PT SLEEPING AND AWAKENS TO VERBAL. DENIES ANY C/O. HOB ELEVATED 30 DEGREES. NSR, RATE 60, BP IS 140/71
--- NOTE | 2019-02-14 16:24 | NUR ---
HOB FULLY ELEVATED. DRESSING CDI TO RIGHT GROIN, PEDAL PULSES PALPABLE. VSS. PT IS ALERT AND DENIES ANY C/O. SANDWICH AND PO FLUIDS SERVED. NO FAMILY AT BEDSIDE, CALL LIGHT IN REACH.
--- NOTE | 2019-02-14 17:42 | NUR ---
165 DRESSING TO RIGHT GROIN REMAINS CDI, PEDAL PULSES PALPABLE. PT HAS TOLERATED SANDWICH WITH NO C/O. DAUGHTER PRESENT AND DC INSTRUCTIONS REVIEWED WITH PT AND DAUGHTER WHO VERBALIZE UNDERSTANDING. IV'S X2 DC'D WT CATH TIPS INTACT. PT IS DRESSING FOR DC WITH ASSIST FROM NURSE. 1704 PT HAS DRESSED FOR DC WT ASSIST. DRESSING REMAINS CDI, PT DENIES ANY NV DEFICIT TO RLE, IS ALERT AND DENIES ANY C/O PAIN OR NAUSEA. RESP WITH EASE ON ROOM AIR. PT ESCORTED TO PRIVATE AUTO VIA WC BY NURSE [facility] DAUGHTER DRIVING HIM HOME.
--- NOTE | 2019-02-17 09:50 | OP ---
PATIENT NAME: RADHA KEVIN MEDICAL RECORD: [id number] :57 LOCATION:D.CAT ADMISSION DATE: SURGEON: SIMON RAMOS MD DATE OF OPERATION: 02/14/2019 PROCEDURES: 1. Left heart catheterization. 2. Selective coronary angiography. 3. Left ventriculogram. 4. IFR INDICATION: Chest pain compatible with angina. PROCEDURE IN DETAIL: After informed consent was obtained and after detailed explanation of risks, benefits as well as alternative therapies, the patient elected to proceed with angiogram and heart catheterization. The right femoral area was prepped and draped in normal sterile fashion. Right femoral artery was cannulated via modified Seldinger technique with placement of 6-Kiswahili sheath. All catheters exchanged through this sheath. FINDINGS: Left ventriculogram was performed in standard 30-degree LAWRENCE view, reveals good cardiac wall motion, ejection fraction 55% to 60%. SELECTIVE CORONARY ANGIOGRAPHY: 1. Left main is with no significant angiographic disease. 2. Left anterior descending has mild irregularities, but no flow-limiting stenosis. 3. The ramus intermedius has a questionable stenosis; however, IFR was normal. 4. Left circumflex has mild irregularities, but no flow-limiting stenosis. 5. Right coronary has mild irregularities, but no flow-limiting stenosis. OVERALL IMPRESSION: Minimal coronary artery disease is present. No hemodynamically significant disease with preserved left ventricular function. TRANSINT:[id number] Voice Confirmation ID: [id number] DOCUMENT ID: [id number] SIMON RAMOS MD at 0950 CC: [id number] DICTATION DATE: 02/14/19 1451 SAFETY SUPERVISOR: 02/14/19 1533 DEP CLI 02/14/19 [id number] [place] [address]
== END 2019-02-14 17:05 | disposition home or self-care (01) ==
LOC: D.CATH 12:41 → D.ER 12:41 → EDSTATUS 13:47 → D.CATH 17:05
PROVIDERS: ATTEND Family Medicine
DX: I25.119 Atherosclerotic heart disease of native coronary artery with unspecified angina pectoris (principal); Z01.812 Encounter for preprocedural laboratory examination